=== PATIENT | female | born 1950 | race African-American/Black ===

== ENCOUNTER → 2020-11-14 | Outpatient (CLI) | payer MEDICARE ==
[~2020-11-14] MED LIST: ASPIRIN325 MG PO; FUROSEMIDE40 MG PO; GABAPENTIN300 MG PO; HYDRALAZINE HCL25 MG PO; ISOSORBIDE MONO20 MG PO; MECLIZINE HCL12.5 MG PO; METOPROLOL SUCC50 MG PO; NITROGLYCERIN0.4 MG SL; PLAVIX75 MG PO; POTASSIUM CHLO20 ME1 PO; PRAVACHOL20 MG PO; ULTRAM 50MG50 MG PO; VALSARTAN320 MG PO
[2020-11-14 10:46] LABS: BASOPHILS % 0.3 % (0.0-1.0); EOSINOPHILS # (AUTO) 0.2 (0.0-0.4); EOSINOPHILS % 3.2 % (0.0-6.0); HEMOGLOBIN 7.3 g/dL (12.0-16.0); LYMPHOCYTES # (AUTO) 2.4 (1.0-3.2); LYMPHOCYTES % 37.6 % (18.0-39.1); MEAN CORPUSCULAR HEMOGLOBIN 44.8 pg (28-32); MEAN CORPUSCULAR HGB CONC 35.4 g/dL (31-35); MEAN CORPUSCULAR VOLUME 126.4 fL (81-99); MONOCYTES # (AUTO) 0.3 (0.2-0.8); MONOCYTES % 4.3 % (4.4-11.3); NEUTROPHILS # (AUTO) 3.4 (2.1-6.9); NEUTROPHILS % 53.5 % (38.7-80.0); PLATELET COUNT 212 x10e3/uL (140-360); RED BLOOD COUNT 1.63 x10e6/uL (3.6-5.1); RED CELL DISTRIBUTION WIDTH 14.5 % (11.7-14.4)
[2020-11-14 10:51] LABS: HEMATOCRIT 20.6 % (34.2-44.1)
== END ==
LOC: DX 11:19 → EDSTATUS 11-18 13:30
PROVIDERS: ATTEND Internal Medicine Gastroenterology
DX: Z01.812 Encounter for preprocedural laboratory examination (principal); Z01.818 Encounter for other preprocedural examination; Z20.822 Contact with and (suspected) exposure to COVID-19; K92.1 Melena
CPT/HCPCS: 36415; 85025; 93005; U0002

== ENCOUNTER 2020-11-20 10:38 | Emergency (ER) | payer MEDICARE ==
[~2020-11-20] VITALS: Ht 162.6 cm; Wt 120.7 kg
[2020-11-20 11:15] LABS: BASOPHILS % 0.4 % (0.0-1.0); EOSINOPHILS # (AUTO) 0.2 (0.0-0.4); EOSINOPHILS % 3.6 % (0.0-6.0); HEMATOCRIT 24.1 % (34.2-44.1); HEMOGLOBIN 8.4 g/dL (12.0-16.0); LYMPHOCYTES # (AUTO) 2.5 (1.0-3.2); LYMPHOCYTES % 43.8 % (18.0-39.1); MEAN CORPUSCULAR HEMOGLOBIN 46.2 pg (28-32); MEAN CORPUSCULAR HGB CONC 34.9 g/dL (31-35); MEAN CORPUSCULAR VOLUME 132.4 fL (81-99); MONOCYTES # (AUTO) 0.3 (0.2-0.8); MONOCYTES % 4.4 % (4.4-11.3); NEUTROPHILS # (AUTO) 2.7 (2.1-6.9); NEUTROPHILS % 47.6 % (38.7-80.0); PLATELET COUNT 321 x10e3/uL (140-360); RED BLOOD COUNT 1.82 x10e6/uL (3.6-5.1); RED CELL DISTRIBUTION WIDTH 14.1 % (11.7-14.4)
[2020-11-20 11:24] LABS: INR 0.92
[2020-11-20 11:32] LABS: ALANINE AMINOTRANSFERASE 8 IU/L (0-55); ALBUMIN 3.8 g/dL (3.5-5.0); ALBUMIN/GLOBULIN RATIO 1.2 (0.8-2.0); ALKALINE PHOSPHATASE 54 IU/L (40-150); ANION GAP 11.7 mmol/L (8-16); BLOOD UREA NITROGEN 15 mg/dL (7-26); BUN/CREATININE RATIO 17 (6-25); CALCIUM 8.4 mg/dL (8.4-10.2); CARBON DIOXIDE 29 mmol/L (22-29); CHLORIDE 105 mmol/L (98-107); CREATININE, SERUM 0.86 mg/dL (0.57-1.11); EST GLOMERULAR FILTRATION RATE > 60 ML/MIN (60-); GLUCOSE 86 mg/dL (74-118); POTASSIUM 3.7 mmol/L (3.5-5.1); SODIUM 142 mmol/L (136-145)
[2020-11-20 11:38] LABS: CLARITY,URINE CLEAR (CLEAR); COLOR,URINE YELLOW (YELLOW); KETONES,URINE 1+ (NEGATIVE); LEUKOCYTE ESTERASE ,URINE NEGATIVE (NEGATIVE); NITRITE,URINE NEGATIVE (NEGATIVE); PROTEIN,URINE DIPSTICK 1+ (NEGATIVE); URINE UROBILINOGEN 1 mg/dL (0.2 - 1)
[2020-11-20 11:48] LABS: BACTERIA,URINE MODERATE /HPF; EPITHELIAL CELLS,URINE MODERATE /LPF; RBC,URINE 0-5 /HPF (0-5); WBC,URINE (MAN) 0-5 /HPF (0-5)
[2020-11-20] MEDS ORDERED: SODIUM CHLORIDE 0.9% 100 ML ONE (11:49)
[2020-11-20] MEDS ORDERED: IOPAMIDOL 370 MG/ML 200 ML INFUS..BTL INJ ONE (11:49)
== END 2020-11-20 14:02 | disposition home or self-care (01) ==
LOC: ER 11:00
DX: D64.9 Anemia, unspecified (principal); I10 Essential (primary) hypertension; E78.5 Hyperlipidemia, unspecified; I50.9 Heart failure, unspecified; I25.10 Atherosclerotic heart disease of native coronary artery without angina pectoris; I25.2 Old myocardial infarction
CPT/HCPCS: 36415; 71045; 74174; 80053; 81001; 85025; 85610; 86850; 86900; 99284; J7050; Q9967